=== PATIENT | male | born 1935 | race American Indian/Alaskan Native ===

== ENCOUNTER 2020-09-09 16:49 | Emergency (ER) | payer MEDICARE ==
--- NOTE | 2020-09-09 17:23 | Event Note ---
ED Screening Note Date of service: 09/09/20 Time: 17:22 ED Screening Note: 85-year-old -Tong[place] male presents to the emergency room complaining of lower abdominal pain shortness of breath that started yesterday. It was noted that patient's blood pressure was 208/103 and satting at 93% on room air. Patient afebrile past medical history of hypertension has had a cholecystectomy and history of back surgery. This initial assessment/diagnostic orders/clinical plan/treatment(s) is/are s ubject to change based on patients health status, clinical progression and re- assessment by fellow clinical providers in the ED. Further treatment and workup at subsequent clinical providers discretion. Patient/guardian urged not to elope from the ED as their condition may be serious if not clinically assessed and managed. Initial orders include:
[2020-09-09 17:52] LABS: Basophils # (Auto) 0.1 K/mm3 (0.0-0.1); Basophils % (Auto) 1.2 % (0.0-1.8); Eosinophils % (Auto) 0.5 % (0.0-4.3); Hematocrit 38.7 % (35.5-45.6); Hemoglobin 13.1 gm/dl (11.8-15.2); Lymphocytes # (Auto) 0.9 K/mm3 (1.2-5.4); Lymphocytes % (Auto) 13.8 % (13.4-35.0); Mean Corpuscular HGB Conc 34 % (32-34); Mean Corpuscular Volume 95 fl (84-94); Monocytes # (Auto) 0.5 K/mm3 (0.0-0.8); Monocytes % (Auto) 7.3 % (0.0-7.3); Platelet Count 238 K/mm3 (140-440); Red Blood Count 4.07 M/mm3 (3.65-5.03)
[2020-09-09 18:04] LABS: Albumin 4.7 g/dL (3.9-5); BUN/Creatinine Ratio 13; Blood Urea Nitrogen 15 mg/dL (9-20); Calcium 9.4 mg/dL (8.4-10.2); Hemolysis Index 4
[2020-09-09 18:05] LABS: Alanine Aminotransferase < 5 units/L (7-56)
[2020-09-09 18:18] LABS: INR 1.09 (0.87-1.13)
[2020-09-09 18:19] LABS: Partial Thromboplastin Time 40.5 Sec. (24.2-36.6)
[2020-09-09] MEDS ORDERED: ONDANSETRON 4 MG/2 ML INJ IV ONE (20:33)
[2020-09-09] MEDS ORDERED: HYDROmorphone 1 MG/1 ML INJ IV ONE ×2 (20:33→22:41)
--- NOTE | 2020-09-09 20:34 | Emergency Department Report ---
ED Abdominal Pain HPI - General Chief Complaint: Dyspnea/Respdistress Stated Complaint: ABD PAIN/SOB/BACK PAIN PUI?: No Time Seen by Provider: 09/09/20 20:28 Source: patient, family Mode of arrival: Wheelchair Limitations: Physical Limitation - History of Present Illness Initial Comments: Patient is an 85-year-old male that presents emergency room with multiple complaints to include abdominal pain, nausea and vomiting, shortness of breath.. Patient complains of abdominal pain, to his bilateral lower quadrants x1 day. Patient also complains of nausea and vomiting. Patient denies blood in his vomitus. Patient states his abdominal pain is worse with movement and palpation. Patient states his pain is better with rest. Patient states his pain is also worse with vomiting. Patient denies fever and chills. Patient states his pain is nonradiating. Patient complains of shortness of breath. Patient that shortness of breath started yesterday. Patient states is not on home oxygen. Patient was found to be hypoxic in triage. Patient is on 2 L and his oxygen right now is 100%. Patient denies chest pain. Patient denies cough. Patient denies fever and chills. Patient denies recent travel. Patient denies recent international travel. Patient denies exposure to the novel coronavirus. Patient denies sick contacts. Patient denies fever and chills. Patient denies cough. Patient denies diarrhea. Patient denies coming in contact with anybody with symptoms of the novel coronavirus. Daughter at bedside during the entire encounter. MD Complaint: abdominal pain -: Sudden Location: LLQ, RLQ Radiation: none Migration to: no migration Severity: severe Severity scale (0 -10): 10 Quality: stabbing Consistency: constant Improves With: rest Worsens With: vomiting, movement Associated Symptoms: nausea, vomiting. denies: diarrhea, fever, chills, constipation, dysuria, hematemesis, hematochezia, melena, hematuria, anorexia, syncope - Related Data Allergies Allergy/AdvReac Type Severity Reaction Status Date / Time No Known Allergies Allergy Verified 09/09/20 17:10 ED Review of Systems ROS: Stated complaint: ABD PAIN/SOB/BACK PAIN Other details as noted in HPI Constitutional: denies: chills, fever Eyes: denies: eye pain, eye discharge, vision change ENT: denies: ear pain, throat pain Respiratory: see HPI, shortness of breath. denies: cough, wheezing Cardiovascular: denies: chest pain, palpitations Endocrine: no symptoms reported Gastrointestinal: abdominal pain, nausea, vomiting. denies: diarrhea Genitourinary: denies: urgency, dysuria Musculoskeletal: denies: back pain, joint swelling, arthralgia Skin: denies: rash, lesions Neurological: denies: headache, weakness, paresthesias Psychiatric: denies: anxiety, depression Hematological/Lymphatic: denies: easy bleeding, easy bruising ED Past Medical Hx - Past Medical History Previous Medical History?: Yes Hx Hypertension: Yes - Surgical History Past Surgical History?: Yes Hx Cholecystectomy: Yes Additional Surgical History: back sx - Family History Family history: no significant - Social History Smoking Status: Never Smoker Substance Use Type: None ED Physical Exam - General Limitations: Physical Limitation General appearance: alert, in no apparent distress - Head Head exam: Present: atraumatic, normocephalic - Eye Eye exam: Present: normal appearance - ENT ENT exam: Present: mucous membranes moist - Neck Neck exam: Present: normal inspection - Respiratory Respiratory exam: Present: normal lung sounds bilaterally. Absent: respiratory distress, wheezes, rales - Cardiovascular Cardiovascular Exam: Present: regular rate, normal rhythm. Absent: systolic murmur, diastolic murmur, rubs, gallop - GI/Abdominal GI/Abdominal exam: Present: soft, tenderness (Bilateral lower quadrant tenderness to palpation.), normal bowel sounds - Rectal Rectal exam: Present: deferred - Extremities Exam Extremities exam: Present: normal inspection - Back Exam Back exam: Present: normal inspection - Neurological Exam Neurological exam: Present: alert, oriented X3 - Psychiatric Psychiatric exam: Present: normal affect, normal mood - Skin Skin exam: Present: warm, dry, intact, normal color. Absent: rash ED Course Vital Signs 09/09/20 09/10/20 17:11 01:41 Temperature 97.8 F Pulse Rate 97 H 93 H Respiratory 18 16 Rate Blood Pressure 208/103 Blood Pressure 178/102 [Left] O2 Sat by Pulse 93 100 Oximetry - Reevaluation(s) Reevaluation #1: Patient given another dose of Dilaudid. Patient was to be given steroids and Benadryl since the patient states he is sensitive to IV contrast. Patient's never had an allergic reaction to IV contrast but patient states he gets a headache after he received contrast. Patient agrees to have a CT scan with IV contrast. 09/09/20 22:30 Reevaluation #2: Patient states his pain is better. Patient resting comfortably in bed. 09/09/20 23:00 Reevaluation #3: I discussed results with patient and family. 09/10/20 00:01 Reevaluation #4: Patient will be transferred to [facility] via EMS. I discussed all results and clinical findings with patient. I discussed plan of care with patient. Patient agrees with plan of care and transfer. Patient is stable for transfer. 09/10/20 02:31 - Consultations Consultation #1: I discussed case with Dr. Penn, general surgery. Dr. Penn recommends transfer for an emergent colonoscopy. This facility does not have the capability to do an emergent colonoscopy so I will consult another facility. 09/10/20 00:02 I discussed again with Dr. Penn the difficulties in transfer and asked denies asked that I consult with our GI to see if they can do a sigmoidoscopy and the OR. 09/10/20 00:42 Consultation #2: I discussed with all the local hospitals and all of the hospitals are on diversi on or do not had available GI. I will discuss this again with Dr. Penn. 09/10/20 00:41 Consultation #3: I discussed with Dr. Reed, GI. Dr. Reed recommends transfer to a facility that has capabilities to do a sigmoidoscopy at night and this facility does not have that capability. 09/10/20 00:52 I consulted again [place]. 09/10/20 01:[address] Hong at [facility] ER and Dr. Hong has accepted the patient to be transferred ER to ER. Dr. Hong states he has discussed this with the on-call GI there and they are in agreements that the patient will go to [facility]. 09/10/20 02:24 ED Medical Decision Making - Lab Data Result diagrams: 09/09/20 17:22 09/09/20 17:22 - EKG Data -: EKG Interpreted by Me EKG shows normal: sinus rhythm, intervals, QRS complexes, ST-T waves Rate: normal - EKG Data Interpretation: other ([place] deviation) - Radiology Data Radiology results: report reviewed, image reviewed interpreted by me: Chest x-ray: No pneumonia, no pneumothorax, no foreign body, no osseous findings, no acute findings CT ABDOMEN AND PELVIS WITH CONTRAST INDICATION: Shortness of breath, Hypoxia.. TECHNIQUE: Axial CT images were obtained through the abdomen and pelvis after 100 cc Omni [address] scans at this location are performed using CT dose reduction for ALARA by means of automated exposure control. COMPARISON: None available. FINDINGS: LOWER CHEST: No significant abnormality. LIVER: No significant abnormality. GALLBLADDER: No significant abnormality. BILE DUCTS: No significant abnormality. PANCREAS: No significant abnormality. SPLEEN: No significant abnormality. ADRENALS: No significant abnormality. RIGHT KIDNEY and URETER: No significant abnormality. LEFT KIDNEY and URETER: No significant abnormality. STOMACH and SMALL BOWEL: No significant abnormality. COLON: Sigmoid volvulus with dilated colon measuring 14 cm. APPENDIX: No significant abnormality. PERITONEUM: No free fluid. No free air. No fluid collection. LYMPH NODES: No significant adenopathy. AORTA and ARTERIES: No significant abnormality. IVC and VEINS: No significant abnormality. URINARY BLADDER: No significant abnormality. REPRODUCTIVE ORGANS: No significant abnormality. ADDITIONAL FINDINGS: None. SKELETAL SYSTEM: No significant abnormality. IMPRESSION: 1. Sigmoid volvulus with marked colonic distention CTA CHEST WITH IV CONTRAST INDICATION: Shortness of breath, Hypoxia.. TECHNIQUE: Axial CT images were obtained through the chest after injection of 100 cc Omni 350 IV contrast. 3 plane MIP reconstructions were produced. All CT scans at this location are performed using CT dose reduction for ALARA by means of automated exposure control. COMPARISON: None available. FINDINGS: PULMONARY ARTERIES: No pulmonary emboli. THORACIC AORTA: No acute abnormality. HEART: Normal. CORONARY ARTERIES: No significant calcification. PLEURA: No pleural effusion. No pneumothorax. LYMPH NODES: No significant adenopathy. LUNGS: Suboptimal inspiratory effort with linear bibasilar atelectasis ADDITIONAL FINDINGS: None. UPPER ABDOMEN: Several simple right renal cysts measuring up to 4.9 cm. Gallb ladder surgically absent SKELETAL STRUCTURES: No significant osseous abnormality. IMPRESSION: 1. No CT evidence for pulmonary embolism. 2. No acute findings. - Medical Decision Making Patient is an 85-year-old presents emergency room with complaints of abdominal pain, shortness of breath. Patient found to be hypoxic in triage and was given oxygen and is O2 improved. Patient was given pain medications and his shortness of breath and pain improved. Patient had labs done which were essentially unremarkable except for an elevated troponin and BNP. Patient had a CT scan of the abdomen and pelvis a CTA of the chest ordered. There was a delay in getting the CT done because the patient said he had a sensitivity to contrast where he gets a headache after receiving IV contrast but does not have an allergy. Patient was given steroids and Benadryl prior to the CT contrast was given and had no reaction. Patient was given Dilaudid for pain and responded well. CT angio of the chest shows no acute finding. CT scan of the abdomen shows a sigmoid volvulus with colonic distention. I initially discussed the CT results with general surgery and they recommend transfer to facility with GI. This facility does not have GI or endoscopy at this time. I discussed with multiple facilities and many facilities are on diversion and do not have GI support. I then called [facility] again for assistance and the patient was finally accepted for an ER to ER transfer in the GI will see the patient in the ER. The multiple calls to multiple facilities has caused a delay in transfer. Patient was accepted by Dr. Hong, ER attending at [facility] to b e transferred via EMS. Patient agree with transfer. Patient has been stable in the ER the entire time. Patient's vital signs were monitored the entire time. Critical care time documented due to the multiple reassessments, prolonged time at the bedside, interpretation of diagnostics and labs discussion with multiple facilities and consultants. . - Differential Diagnosis Abdominal pain, sbo, hypoxia. sob. gastroenteritis. Critical Care Time: Yes Critical care time in (mins) excluding proc time.: 80 Critical care attestation.: If time is entered above; I have spent that time in minutes in the direct care of this critically ill patient, excluding procedure time. Critical Care Time: 80 minutes ED Disposition Clinical Impression: Colonic volvulus, Elevated troponin I level, SOB (shortness of breath) Abdominal pain Qualifiers: Abdominal location: generalized Qualified Code(s): R10.84 - Generalized abdominal pain Respiratory failure Qualifiers: Chronicity: acute Respiratory failure complication: hypoxia Qualified Code(s): J96.01 - Acute respiratory failure with hypoxia Disposition: DC/TX-70 ANOTHER TYPE HLTHCARE Is pt being admited?: No Does the pt Need Aspirin: No Condition: Critical Time of Disposition: 02:38
--- NOTE | 2020-09-09 20:59 | XRay Report ---
CHEST 1 VIEW INDICATION: sob COMPARISON: None FINDINGS: SUPPORT DEVICES: None. HEART / MEDIASTINUM: No significant abnormality. LUNGS / PLEURA: Marked decreased lung volumes. No significant pulmonary or pleural abnormality. No pn eumothorax. ADDITIONAL FINDINGS: IMPRESSION: 1. No acute cardiopulmonary disease Signer Name: Boris Alamo MD Signed: 09/09/2020 8:55 PM Workstation Name: [id number]
[2020-09-09 21:33] LABS: Chol/HDL Ratio 3.09 %
[2020-09-09] MEDS ORDERED: methylPREDNISolone Sod Succinate 125 MG/2 ML INJ IV ONE (22:19)
[2020-09-09] MEDS ORDERED: diphenhydrAMINE 50 MG/ML VIAL IV ONE (22:41)
--- NOTE | 2020-09-09 23:30 | Cat Scan Report ---
CTA CHEST WITH IV CONTRAST INDICATION: Shortness of breath, Hypoxia.. TECHNIQUE: Axial CT images were obtained through the chest after injection of 100 cc Omni 350 IV contrast. 3 dorene ne MIP reconstructions were produced. All CT scans at this location are performed using CT dose reduc tion for ALARA by means of automated exposure control. COMPARISON: None available. FINDINGS: PULMONARY ARTERIES: No pulmonary emboli. THORACIC AORTA: No acute abnormality. HEART: Normal. CORONARY ARTERIES: No significant calcification. PLEURA: No pleural effusion. No pneumothorax. LYMPH NODES: No significant adenopathy. LUNGS: Suboptimal inspiratory effort with linear bibasilar atelectasis ADDITIONAL FINDINGS: None. UPPER ABDOMEN: Several simple right renal cysts measuring up to 4.9 cm. Gallbladder surgically absent SKELETAL STRUCTURES: No significant osseous abnormality. IMPRESSION: 1. No CT evidence for pulmonary embolism. 2. No acute findings. Signer Name: Saman Rooney MD Signed: 09/09/2020 11:25 PM Workstation Name: [id number]
--- NOTE | 2020-09-09 23:31 | Cat Scan Report ---
CT ABDOMEN AND PELVIS WITH CONTRAST INDICATION: Shortness of breath, Hypoxia.. TECHNIQUE: Axial CT images were obtained through the abdomen and pelvis after 100 cc Omni [address] scans at this location are performed using CT dose reduction for ALARA by means of automated expos ure control. COMPARISON: None available. FINDINGS: LOWER CHEST: No significant abnormality. LIVER: No significant abnormality. GALLBLADDER: No significant abnormality. BILE DUCTS: No significant abnormality. PANCREAS: No significant abnormality. SPLEEN: No significant abnormality. ADRENALS: No significant abnormality. RIGHT KIDNEY and URETER: No significant abnormality. LEFT KIDNEY and URETER: No significant abnormality. STOMACH and SMALL BOWEL: No significant abnormality. COLON: Sigmoid volvulus with dilated colon measuring 14 cm. APPENDIX: No significant abnormality. PERITONEUM: No free fluid. No free air. No fluid collection. LYMPH NODES: No significant adenopathy. AORTA and ARTERIES: No significant abnormality. IVC and VEINS: No significant abnormality. URINARY BLADDER: No significant abnormality. REPRODUCTIVE ORGANS: No significant abnormality. ADDITIONAL FINDINGS: None. SKELETAL SYSTEM: No significant abnormality. IMPRESSION: 1. Sigmoid volvulus with marked colonic distention Signer Name: Saman Rooney MD Signed: 09/09/2020 11:27 PM Workstation Name: [id number]
[2020-09-10] MEDS ORDERED: hydrALAZINE 20 MG/1 ML INJ IV ONE (02:50)
[2020-09-10 03:02] VITALS: BP 172/100
--- NOTE | 2020-09-10 09:58 | Electrocardiograph Report ---
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
== END 2020-09-10 03:31 | disposition other institution (70) ==
LOC: ED 16:49
DX: J96.90 Respiratory failure, unspecified, unspecified whether with hypoxia or hypercapnia (principal); K56.2 Volvulus; R10.30 Lower abdominal pain, unspecified; R77.8 Other specified abnormalities of plasma proteins; I10 Essential (primary) hypertension; Z90.49 Acquired absence of other specified parts of digestive tract
CPT/HCPCS: 36415; 71045; 71275; 74177; 80053; 80061; 83690; 83735; 83880; 84100; 84484; 85025; 85610; 85730; 93005; 96374; 96375; 96376; 99291; 99292; J0360; J1170; J1200; J2405; J2930; Q9967